=== PATIENT | female | born 1955 | race African-American/Black ===

== ENCOUNTER → 2019-11-13 16:41 | Outpatient (CLI) | payer OTHER, SELFPAY ==
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
== END ==
PROVIDERS: PCP Family Medicine; Visit Provider Family Medicine
DX: M79.10 Myalgia, unspecified site (principal); M47.892 Other spondylosis, cervical region
CPT/HCPCS: 72050; 73030; 73590

== ENCOUNTER 2019-12-23 13:50 | Outpatient (RCR) | payer OTHER, SELFPAY ==
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
--- NOTE | 2020-01-21 14:26 | PCPTNOTE ---
PHYSICAL THERAPY DISCHARGE 01-21-2020 Attending Provider: Karyn Christensen MD Patient:Germaine Bingham Date of :1955 Mrs. Bingham has not returned for any further treatments since the PT evaluation on 12/23/2019, therefore she will be discharged from therapy at this time. The goals were not assessed. Thank you for referring Germaine to [facility]. Please review, sign, date and return this discharge summary ARIK. I have been updated about the patient's current status and I agree with discharge from the above service at this time. Referring Physician Date
== END 2020-01-22 14:46 | disposition home or self-care (01) ==
LOC: ANHPT 13:50
PROVIDERS: PCP Family Medicine; Visit Provider Family Medicine
DX: M79.10 Myalgia, unspecified site (principal)
CPT/HCPCS: 97161

== ENCOUNTER 2024-02-21 17:17 | Outpatient (CLI) | payer MEDICARE, BC, SELFPAY ==
--- NOTE | ~2024-02-21 | XR_ITS ---
EXAMINATION: XR chest 2V DATE: 02/21/2024 17:41 INDICATION: Encounter for other preprocedure examination. TECHNIQUE: Frontal and lateral views of the chest were obtained. COMPARISON: Chest 2 views 06/07/2018, CT abdomen and pelvis 09/30/2019 FINDINGS: There is chronic blunting of right lateral costophrenic angle, consistent with scarring. Th ere are are surgical clips in right lower lung zone. Calcified right lung nodules and calcified right hilar and mediastinal lymph nodes are consistent with old granulomatous disease. No pleural effusion or pneumothorax. The heart size is normal. IMPRESSION: 1. Chronic scarring in right lateral costophrenic angle. Reviewed, dictated and finalized at location E.
== END 2024-02-21 17:18 | disposition home or self-care (01) ==
LOC: ANHIMG 17:27
PROVIDERS: PCP Physician Assistant; Visit Provider Physician Assistant
DX: Z01.818 Encounter for other preprocedural examination (principal); Z12.31 Encounter for screening mammogram for malignant neoplasm of breast; M81.0 Age-related osteoporosis without current pathological fracture; Z87.891 Personal history of nicotine dependence; R19.00 Intra-abdominal and pelvic swelling, mass and lump, unspecified site; R91.8 Other nonspecific abnormal finding of lung field
CPT/HCPCS: 71046

== ENCOUNTER 2024-03-07 14:55 | Outpatient (CLI) | payer MEDICARE, BC, SELFPAY ==
--- NOTE | 2024-03-07 | ECG_ITS ---
SEE SCANNED COPY FOR CONFIRMED REPORT MTDD
--- NOTE | ~2024-03-07 | US_ITS ---
EXAMINATION: US pelvic complete DATE: 03/07/2024 16:31 INDICATION: Pelvic mass TECHNIQUE: Multiple transabdominal sonographic images of the pelvis were obtained. COMPARISON: None. FINDINGS: The uterus measures 5.4 x 2.8 x 4.3 cm. The endometrial complex measures 3 mm in thickness. The righ t ovary measures cm. The ovaries are not visualized. There is no free fluid in the pelvis. IMPRESSION: 1. Normal pelvic ultrasound. Reviewed, dictated and finalized at location A.
--- NOTE | ~2024-03-07 | CT_ITS ---
EXAMINATION: CT lung screening DATE: 03/07/2024 15:37 INDICATION: NICOTINE DEPENDENCE TECHNIQUE: Computed tomography (CT) of the chest was performed without intravenous contrast. Addition al 3D reconstructions utilizing coronal maximum intensity projection (MIP) were performed. Automated exposure control and iterative reconstruction technique were employed. The dose-length product was 56 .46 mGy-cm. COMPARISON: None FINDINGS: There are few scattered bilateral calcified pulmonary nodules the largest at the left apex which donovan g with calcified right hilar and mediastinal lymph nodes all consistent with old granulomatous diseas e. There is a suture line in some pleural parenchymal scarring at the posterolateral right lower lung zone. There is additional mild discoid atelectasis at the posterior basilar left lower lobe. Small p neumatocele in the right lower lobe. No other noncalcified pulmonary nodules, pneumonia, pulmonary ed leida or pleural effusion. Heart size is normal. Surgical clip along the right heart border. No pericar dial effusion. Thoracic aorta is normal in caliber. No pathologically enlarged thoracic lymphadenopat hy. 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 Chronic mild anterior wed ging at T7 and T8. Right seventh rib thoracotomy defect. IMPRESSION: 1. . Lung-RADS category 1: Negative. Continue annual screening with noncontrast low-dose chest CT in 12 months. Reviewed, dictated and finalized at location A.
== END 2024-03-07 14:56 | disposition home or self-care (01) ==
PROVIDERS: PCP Physician Assistant; Visit Provider Physician Assistant
DX: Z01.818 Encounter for other preprocedural examination (principal); M81.0 Age-related osteoporosis without current pathological fracture; R19.00 Intra-abdominal and pelvic swelling, mass and lump, unspecified site; Z87.891 Personal history of nicotine dependence; Z12.31 Encounter for screening mammogram for malignant neoplasm of breast; Z12.2 Encounter for screening for malignant neoplasm of respiratory organs
CPT/HCPCS: 71271; 76856; 93005

== ENCOUNTER 2025-02-25 11:30 | Outpatient (CLI) | payer MEDICARE, BC, SELFPAY ==
--- NOTE | ~2025-02-25 | XR_ITS ---
AP and lateral views of the right femur Clinical History: Other specified disorder of bone Findings: No acute fracture or dislocation is seen. Osseous alignment is anatomic. Visualized joint s paces are grossly preserved. Soft tissues are unremarkable. Impression: Unremarkable right femoral radiographs. Reviewed, dictated and finalized at location . Impression: Unremarkable right femoral radiographs.
--- OUTSIDE RECORDS SUMMARY | 2025-02-25 13:03 | XMS_ITS | Clinical Summary ---
Author Organization [facility] Address [address] [place] [address] Care Team Providers Care Ingredient Mixer Name Role Phone Karyn Christensen MD Primary Care Provider [phone] Source Comments [facility],non-owned Affiliates and Associated Physician Practices is amultiple site organization consisting of ambulatory clinics and hospital sitesin [place], [place], [place] and [place]. This disclosure is being madepursuant to the Care Everywhere program and may not contain all information available regarding this patient. Last updated 18.[facility] Allergies No known active allergies Medications * Be aware that medications may not be up to date on this document. Alwaysverify current medications with the patient. multivitamin daily tablet Take 1 (one) tablet by mouth daily with food Active VITAMIN D PO Take by mouth once daily Active Cyanocobalamin ([facility] VITAMIN B-12 PO) Take by mouth once daily Active VITAMIN E PO Take by mouth once daily Active [place]-3 Fatty Acids (FISH OIL PO) Take by mouth once daily Active Active Problems Problem Noted Date Diagnosed Date Chronic obstructive lung disease 04/19/2021 Osteoporosis 04/19/2021 Tobacco dependence syndrome 04/19/2021 Bipolar I disorder 04/17/2018 Chronic post-traumatic stress disorder 8 Recurrent major depressive episodes, moderate Generalized anxiety disorder 02/08/2018 Chronic hepatitis C 01/15/2017 Overview (05/07/2021): Hepatitis B core antibody non reactive no ummunity to hepatitis B genotype 1a or 1b 05/03/21 FIbroscan CAP 209, LSM 10.3 kPa Depressive disorder 12/03/2016 Family history of breast cancer 12/03/2016 Family history of malignant neoplasm of ovary Skin lesion 12/03/2016 Family History Medical History Relation Name Comments Diabetes - Type 2 Mother Cancer - Breast Sister 1 Cancer - Uterine Sister 2 Cancer - Colon Sister 3 Relation Name Status Comments Mother Sister 1 Sister 2 Sister 3 Social History Tobacco Use Types Packs/Day Years Used Date Smoking Tobacco: Former Cigarettes Q uit: 04/19/2019 Smokeless Tobacco: Never Alcohol Use Standard Drinks/Week Comments Not Currently 0 (1 standard drink = 0.6 oz pur e alcohol) Comments Unknown Sex and Gender Information Value Date Recorded Sex Assigned at Not on file Legal Sex Female 12:02 PM PATIENT RELATIONS DIRECTOR Gender Identity Not on file Sexual Orientation Not on file Last Filed Vital Signs Vital Sign Reading Time Taken Comments Blood Pressure 121/63 09/14/2023 2:41 PM PATIENT RELATIONS DIRECTOR Pulse 81 09/14/2023 2:41 PM PATIENT RELATIONS DIRECTOR Temperature 36.1 C (96.9 F) 09/14/2023 2:41 PM PATIENT RELATIONS DIRECTOR Respiratory Rate 16 10/06/2022 9:23 AM PATIENT RELATIONS DIRECTOR Oxygen Saturation 100% 09/14/2023 2:41 PM PATIENT RELATIONS DIRECTOR Inhaled Oxygen Concentration - - Weight 51.3 kg (113 lb) 09/14/2023 2:41 PM PATIENT RELATIONS DIRECTOR Height 160 cm (5' 3 ) 09/14/2023 2:41 PM PATIENT RELATIONS DIRECTOR Body Mass Index 20.02 09/14/2023 2:41 PM PATIENT RELATIONS DIRECTOR Plan of Treatment Health Maintenance Due Date Last Done Comments BONE DENSITY TESTING 1955 COLOGUARD (AGES 45-75) - COLON CA SCREENING 1955 COLON MONITORING 1955 COLONOSCOPY - COLON CA SCREENING 1956 CT COLONOGRAPHY - COLON CA SCREENING 1955 Colorectal Cancer Screening 1955 FIT - COLON CA SCREENING 1955 FLEX SIG - COLON CA SCREENING 1955 LIPID TESTING 1955 MAMMOGRAM 1955 DTAP/TDAP/TD VACCINES (1 - Tdap) 01/11/1975 PNEUMOCOCCAL VACCINE 50+ (1 of 2 - PCV) 01/11/1975 ZOSTER VACCINE (1 of 2) 01/11/2006 HEPATITIS B VACCINE (1 of 3 - Risk 3-dose series) 2016 Respiratory Syncytial Virus (RSV) Vaccine Pt: or over 60 yrs (1 - Risk 60-74 years 1-dose series) 2016 COVID-19 VACCINE ( season) 2024 MEDICARE AWV CALENDAR YEAR 2024 INFLUENZA VACCINE (Season Ended) 2025 HEPATITIS C SCREENING Completed 09/14/2023 , 09/14/2023, 10/06/2022, Additional history exists HIB VACCINE Aged Out No longer eligi ble based on patient's age to complete this topic HPV VACCINE Aged Out No longer eligi ble based on patient's age to complete this topic MENINGOCOCCAL (Group B) VACCINE SHARED DECISION-MAKING Aged Out No longer eligible based on patient's age to complete this topic MENINGOCOCCAL GROUPS A/C/Y/W VACCINE Aged Out No longer eligible based on patient's age to complete this topic Goals Goal Patient Goal Type Associated Problems Recent Progress Patient-Stated? Author Medication Management General On track( 023 2:43 PM PATIENT RELATIONS DIRECTOR) Serene Manley, RACHELL Note: Expected end date: ONGOING Interventions: Take all medications as prescribed Procedures Procedure Name Priority Date/Time Associated Diagnosis Comments HEPATITIS C RNA QUANTITATIVE Routine 04/07/2022 9:57 AM CDT Chronic hepatitis C without hepatic coma from Last 3 Months or Most Recently Relevant to Health Maintenance Results * HEPATITIS C RNA QUANTITATIVE (04/07/2022 9:57 AM CDT) Hepatitis C RNA PCR, Interp Not detected Not detected 04/11/2022 1:04 PM CDT [facility] Blood BLOOD SPECIMEN / Unknown Lab Venipuncture / Unknown 04/07/2022 9:57 AM CDT 04/07/2022 10:14 AM CDT Narrative [facility] - 04/11/2022 1:04 PM CDT The Hepatitis C viral (HCV) RNA analysis utilized a serum sample, real-time reverse school clerk PCR, and is reported as Not Detected, Detected (<12 IU/mL), Quantity (IU/mL) or >30,000,000 IU/mL. The limit of quantitation of the assay is 12 IU/mL (100% of samples with this HCV RNA level were detected). The linear range is from 12 IU/mL to 30,000,000 IU/mL. Values less than 12 IU/mL are reported as Detected (<12 IU/mL). Values greater than 30,000,000 IU/mL are reported as >30,000,000 IU/mL. The detection/quantitation of HCV RNA in serum is based on the isolation of HCV RNA with reverse school clerk of genomic HCV RNA followed by real-time PCR in the presence of an unrelated RNA internal control. The internal control ensures that RNA is isolated, and that no general significant inhibitors of the RT-PCR process are present. The analysis was performed using a U.S. FDA approved test methodology ([employer] Real Time HCV). Ruth Leger CENTRAL SERVICE SUPPLY DISTRIBUTOR-PETROLEUM ANALYST LAB - CHEMISTRY NAKIA LEWIS Final Result [facility] [address] [place] [address], [facility] [phone] from Last 3 Months or Most Recently Relevant to Health Maintenance Insurance MEDICAID - OUT OF STATE MEDICARE [facility] Care Teams Ingredient Mixer Relationship Specialty Start Date End Date Karyn Christensen MD [address] [place] [id number] PCP - General 04/14/21
--- OUTSIDE RECORDS SUMMARY | 2025-02-25 13:03 | XMS_ITS | CONTINUITY OF CARE DOCUMENT ---
Author Name cintia, ibrahimaser Address Unknown Organization [facility] Address [address] [place] [address] Phone [phone] Care Team Providers Care Reed Or Wind Instrument Repairer Name Role Phone Kai Haynes MD Unavailable [phone] REID LOPEZ PA-C Unavailable REID LOPEZ PA-C Unavailable PROBLEMS Condition Status Date Provider Notes Tricuspid regurgitation, mild active Kai Haynes MD Screening active Kai Haynes MD neg lpa Anemia, iron deficiency active Kai bowling MD Family hx of myocardial infarction (AR), acute active Kai Haynes MD mom mi, siblbildin got aicd Tobacco use, quit active Kai Haynes MD Abnormal EKG active Kai Haynes MD ENCOUNTERS Date Type Provider Location Encounter Diag nosis - In-person encounter Office Visit Kai Haynes MD [place] [facility] - In-person encounter Office Visit Kai Haynes MD [facility] Office Anemia, iron deficiencyFamily hx of myocardial infarction (AR), acuteTobacco use, quitAbnormal EKG VITAL SIGNS Date Observation Value Provider Body Mass Index (Ratio) 19.74 kg/m2 Angélica Haynes MD blood pressure, cuff size regular Heath Leung blood pressure, diastolic 64 mm[Hg] Ta sunita Leung blood pressure, systolic 114 mm[Hg] Tab devorah Leung oxygen saturation, oximetry 98 % Lesvia Leung pulse rate 84 /min Lesvia Leung weight E&M 115 [lb_av] Lesvia Leung respiratory rate E&M 12 /min Lesvia Leung height E&M 64 [in_i] Lesvia Leung Body Mass Index (Ratio) 20.15 kg/m2 Angélica Haynes MD blood pressure, diastolic 64 mm[Hg] Coral nkLogdonna blood pressure, systolic 118 mm[Hg] Reyna kLog blood pressure, cuff size regular Heath dorsey Leung blood pressure, diastolic 64 mm[Hg] Heath dorsey Leung blood pressure, systolic 118 mm[Hg] Ashwin fairchild [place] oxygen saturation, oximetry 97 % Lesvia Leung pulse rate 84 /min Lesvia Leung weight E&M 117.4 [lb_av] Lesvia [place] height E&M 64 [in_i] Lesvia Leung respiratory rate E&M 12 /min Lesvia Leung HISTORY OF MEDICATION USE Medication Status Instructions Dates Provider Indications Com ments aspirin tablet 81 mg completed Take one tab PO daily - 2 Lillie Ventimiglia [facility] ferrous sulfate 325 mg (65 mg iron) tablet active Take one tab PO every other day Lesvia Leung SOCIAL HISTORY Date Observation Value Provider personal history of marijuana use yes Lillie Ventimiglia [facility] drug use no Lillie Ventimig isela [facility] alcohol use no Lillie Ventimig isela [facility] smoking, year quit 2018 Lilliehiram May ntimiglia [facility] cigarette use yes Lillie Ventimi glia [facility] smoking status Former smoker Lilliehiram [place] miglia [facility] personal history of marijuana use yes Lillie Ventimiglia [facility] drug use no Lillie Ventimig isela [facility] alcohol use no Lillie Gradyg isela [facility] smoking, year quit 2018 Lillie mcfadden [facility] cigarette use yes Lillie diez [facility] smoking status Former smoker Lillie malhotra [facility] INS[employer]ANCE PROVID[employer] Payer name Policy type / Coverage type [place] red republican ID [facility]TE [facility]ARE [id number] (PPO C-SNP) [employer] insurance ITeam [id number] [facility] [id number] ADVANCE DIRECTIVES Name Date DISCUSSED - NO DECISION MADE TREATMENT PLAN Date Name Performer Cardiology:on replacement therap y Lillie Danielle [facility] Cardiology:mild on echo Lillie leonard [facility] Cardiology:no chest pain or sob s he had echo that showed EF of 55% no wall motion abnormality g iven abnormal EKG in PCP office and family history will do a treadmill stress test Lillie Danielle [facility] :ef v55 Kai Haynes MD :neg uacr and chol, crp and prob nonprofit financial controller Kai Haynes MD Cardiology:continued cessation e ncouraged. Lillie Danielle [facility] Cardiology:with satu ration of 5% on last labs o n iron replacement per her primary management Lillie Danielle [facility] Cardiology:Noted to have negative precordial T-waves and PVC on EKG T his may be d/t her significant iron deficiency H ave recommended 2D echo to look for any LV dysfunction or WMA Lillie Danielle [facility] Date Name Stress Routine PROBNP, N TERMINAL Complete Echo CRP, high sensitivit y Lipoprotein (a) LIPID PANEL Microalb/Creatinine Urine, Random CT, Coronary Calcium Score HISTORY OF PROCEDURES Procedure Date Procedure Name Provider Procedure Notes S tatus EKG Kai Haynes MD complete d
== END 2025-02-25 11:31 | disposition home or self-care (01) ==
PROVIDERS: PCP Physician Assistant; Visit Provider Physician Assistant
DX: M89.8X5 Other specified disorders of bone, thigh (principal); R10.31 Right lower quadrant pain
CPT/HCPCS: 73552

== ENCOUNTER 2025-03-19 16:11 | Outpatient (CLI) | payer MEDICARE, BC, SELFPAY ==
--- NOTE | ~2025-03-19 | CT_ITS ---
CT Scan of the Chest without Contrast: Clinical Indication: Lung cancer screening, nicotine dependence Technique: Contiguous sections were acquired throughout the chest without intravenous contrast. Dose reduction technique was used on this scan by utilizing automated exposure control and iterative recon struction technique. The dose-length product (DLP) was 54.28 mGy-cm. COMPARISON: 03/07/2024 Findings: There is no evidence of any significant mediastinal, hilar or axillary lymphadenopathy. Large calcifi ed subcarinal lymph node present with additional calcified right hilar lymph nodes. There is no evidence of pleural or pericardial effusion. Calcified granulomas are present. There is bibasilar scarring or atelectasis. Images through the upper abdomen reveal no abnormalities. Impression: Lung RADS 2: Benign appearance. 12 month follow-up screening CT advised. Reviewed, dictated and finalized at location . Impression: Lung RADS 2: Benign appearance. 12 month follow-up screening CT advised.
--- OUTSIDE RECORDS SUMMARY | 2025-03-19 16:17 | XMS_ITS | Clinical Summary ---
Author Organization [facility] Address [address] [place] [address] Care Team Providers Care Mobile Patrol Officer Name Role Phone Karyn Christensen MD Primary Care Provider [phone] Source Comments [facility],non-owned Affiliates and Associated Physician Practices is amultiple site organization consisting of ambulatory clinics and hospital sitesin [place], [place], [place] and [place]. This disclosure is being madepursuant to the Care Everywhere program and may not contain all information available regarding this patient. Last updated 18.[facility] Allergies No known active allergies Medications * [...] PO Take by mouth once daily Active [place]-3 Fatty Acids (FISH OIL PO) Take by [...] on file Legal Sex Female 12:02 PM PROFESSIONAL WRESTLER Gender Identity Not on file Sexual Orientation Not on file Last Filed Vital Signs Vital Sign Reading Time Taken Comments Blood Pressure 121/63 09/14/2023 2:41 PM PROFESSIONAL WRESTLER Pulse 81 09/14/2023 2:41 PM PROFESSIONAL WRESTLER Temperature 36.1 C (96.9 F) 09/14/2023 2:41 PM PROFESSIONAL WRESTLER Respiratory Rate 16 10/06/2022 9:23 AM PROFESSIONAL WRESTLER Oxygen Saturation 100% 09/14/2023 2:41 PM PROFESSIONAL WRESTLER Inhaled Oxygen Concentration - - Weight 51.3 kg (113 lb) 09/14/2023 2:41 PM PROFESSIONAL WRESTLER Height 160 cm (5' 3 ) 09/14/2023 2:41 PM PROFESSIONAL WRESTLER Body Mass Index 20.02 09/14/2023 2:41 PM PROFESSIONAL WRESTLER Plan of Treatment Health Maintenance Due Date [...] Management General On track( 023 2:43 PM PROFESSIONAL WRESTLER) Serene Manley, RACHELL Note: Expected end date: [...] detected Not detected 04/11/2022 1:04 PM CDT [facility] Blood BLOOD SPECIMEN / Unknown Lab Venipuncture / Unknown 04/07/2022 9:57 AM CDT 04/07/2022 10:14 AM CDT Narrative [facility] - 04/11/2022 1:04 PM CDT The Hepatitis C viral (HCV) RNA analysis utilized a serum sample, real-time reverse trade promotion analyst PCR, and is reported as Not Detected, [...] the isolation of HCV RNA with reverse trade promotion analyst of genomic HCV RNA followed by real-time PCR in the presence of an unrelated RNA internal control. The internal control ensures that RNA is isolated, and that no general significant inhibitors of the RT-PCR process are present. The analysis was performed using a U.S. FDA approved test methodology ([employer] Real Time HCV). Ruth Leger ALUMINUM SIDING APPLICATOR-CARE PROVIDER LAB - CHEMISTRY NAKIA LEWIS Final Result [facility] [address] [place] [address], [facility] [phone] from Last 3 Months or Most Recently Relevant to Health Maintenance Insurance MEDICAID - OUT OF STATE MEDICARE [facility] Care Teams Mobile Patrol Officer Relationship Specialty Start Date End Date Karyn Christensen MD [address] [place] [phone] PCP - General 04/14/21
--- OUTSIDE RECORDS SUMMARY | 2025-03-19 16:17 | XMS_ITS | CONTINUITY OF CARE DOCUMENT ---
Author Name cintia, cintia Address Unknown Organization [facility] Address [address] [place] [address] Phone [phone] Care Team Providers Care Rug Cleaning Supervisor Name Role Phone Kai Haynes MD Unavailable REID LOPEZ PA-C Unavailable REID LOPEZ PA-C Unavailable PROBLEMS Condition Status Date Provider Notes Tricuspid regurgitation, mild active Kai Haynes MD Screening active Kai Haynes MD neg lpa Anemia, iron deficiency active Kai bowling MD Family hx of myocardial infarction ([place]), acute active Kai Haynes MD mom mi, siblbildin got aicd Tobacco use, quit active Kai Haynes MD Abnormal EKG active Kai Haynes MD ENCOUNTERS Date Type Provider Location Encounter Diag nosis - In-person encounter Office Visit Kai Haynes MD [place] [facility] - In-person encounter Office Visit Kai Haynes MD [facility] Office Anemia, iron deficiencyFamily hx of myocardial infarction ([place]), acuteTobacco use, quitAbnormal EKG VITAL SIGNS Date [...] blood pressure, systolic 118 mm[Hg] Ashwin fairchild Morral oxygen saturation, oximetry 97 % Lesvia Leung pulse rate 84 /min Lesvia Leung weight E&M 117.4 [lb_av] Lesvia Morral height E&M 64 [in_i] Lesvia Leung respiratory rate E&M 12 /min Lesvia Leung HISTORY OF MEDICATION USE Medication Status Instructions Dates Provider Indications Com ments aspirin tablet 81 mg completed Take one tab PO daily - 2 Lilile Ventimiglia [facility] ferrous sulfate 325 mg (65 mg iron) tablet active Take one tab PO every other day Lesvia Leung SOCIAL HISTORY Date Observation Value Provider personal history of marijuana use yes Lillie Ventimiglia [facility] drug use no Lillie Ventimig isela [facility] alcohol use no Lillie Ventimig isela [facility] smoking, year quit 2018 Lilliehiram May ntimiglia [facility] cigarette use yes Lillie Ventimi glia [facility] smoking status Former smoker Lilliehiram Wells miglia [facility] personal history of marijuana use yes Lillie Ventimiglia [facility] drug use no Lillie Ventimig isela [facility] alcohol use no Lillie Gradyg isela [facility] smoking, year quit 2018 Lillie mcfadden [facility] cigarette use yes Lillie diez [facility] smoking status Former smoker Lillie malhotra [facility] INSURANCE PROVIDERS Payer name Policy type / Coverage type [place] red democrat ID [facility] COMPLETE CARE [id number] (PPO C-SNP) [employer] insurance [employer] [id number] [facility] [id number] ADVANCE DIRECTIVES Name Date DISCUSSED - NO DECISION MADE TREATMENT PLAN Date Name Performer Cardiology:on replacement therap y Lillie Danielle [facility] Cardiology:mild on echo Lillie leonard [facility] Cardiology:no chest pain or sob s he had echo that showed EF of 55% no wall motion abnormality g iven abnormal EKG in PCP office and family history will do a treadmill stress test Lillie Danielle [facility] :ef v55 Kai Haynes MD :neg uacr and chol, crp and prob special education assistant Kai Haynes MD Cardiology:continued cessation e ncouraged. Lillie Danielle [facility] Cardiology:with satu ration of 5% on last labs o n iron replacement per her primary management Lillie Danielle [facility] Cardiology:Noted to have negative precordial T-waves and PVC on EKG T his may be d/t her significant iron deficiency H ave recommended 2D echo to look for any LV dysfunction or WMA Lillie Danielle [facility] Date Name Stress Routine PROBNP, N TERMINAL Complete Echo CRP, high sensitivit y Lipoprotein (a) LIPID PANEL Microalb/Creatinine Urine, Random CT, Coronary Calcium Score HISTORY OF PROCEDURES Procedure Date Procedure Name Provider Procedure Notes S tatus EKG Kai Haynes MD complete d
== END 2025-03-19 16:12 | disposition home or self-care (01) ==
PROVIDERS: PCP Physician Assistant; Visit Provider Physician Assistant
DX: Z12.2 Encounter for screening for malignant neoplasm of respiratory organs (principal); Z87.891 Personal history of nicotine dependence; Z13.820 Encounter for screening for osteoporosis; Z12.31 Encounter for screening mammogram for malignant neoplasm of breast
CPT/HCPCS: 71271

== ENCOUNTER 2025-03-19 16:35 | Emergency (ER) | payer MEDICARE, BC, SELFPAY ==
--- NOTE | ~2025-03-19 | CT_ITS ---
CLINICAL INDICATION: Left-sided abdominal pain with constipation COMPARISON: 09/30/2019. TECHNIQUE: Multiple contiguous axial images of the abdomen and pelvis were performed following the ad ministration of with 100 mL Omnipaque-350 intravenous contrast The dose-length product (DLP) was 170.05 mGy-cm. Automated exposure control and iterative reconstruction technique were employed. FINDINGS/OBSERVATIONS: Visualized lower thorax: Findings consistent with prior granulomatous disease within the bilateral lung bases. The remainder of the bilateral lung bases are clear. The heart is of normal size, without pericardial effusion. Liver: The liver demonstrates homogeneous enhancement and is not enlarged. Gallbladder and biliary system: The gallbladder is minimally distended, containing a single lamellated stone and is otherwise unremar kable. Pancreas: The pancreas enhances homogeneously without ductal dilatation. Spleen: The spleen enhances homogeneously and is not enlarged. Kidneys: The bilateral kidneys enhance symmetrically without hydronephrosis or renal calculi. Rapid excretion is noted. Adrenal glands: Unremarkable. Gastrointestinal tract: Mural thickening within the stomach suggesting gastritis. Aerated stool is identified throughout the colon. Appendix: The air-filled appendix is of normal caliber (axial series, images 99 through 105). Vasculature: Unremarkable. Lymph nodes: No pathologically enlarged or morphologically suspicious lymph nodes within the retroperitoneum or at the root of the mesentery. Pelvic structures: The bladder is decompressed, and otherwise unremarkable. The uterus is retroverted and retroflexed. Body wall and musculoskeletal: Age-appropriate degenerative disease within the lower thoracic and lumbosacral spines. IMPRESSION: Findings suggesting gastritis, for which clinical correlation is needed. Cholelithiasis without evidence of cholecystitis. Reviewed, dictated and finalized at location A.
--- OUTSIDE RECORDS SUMMARY | 2025-03-19 16:37 | XMS_ITS | CONTINUITY OF CARE DOCUMENT ---
Author Name cintia, cintia Address Unknown Organization [facility] Address [address] [place] [address] Phone [phone] Care Team Providers Care Web Knitter Name Role Phone Kai Haynes MD Unavailable REID LOPEZ PA-C Unavailable [phone] REID LOPEZ PA-C Unavailable PROBLEMS Condition Status Date Provider Notes Tricuspid regurgitation, mild active Kai Haynes MD Screening active Kai Haynes MD neg lpa Anemia, iron deficiency active Kai bowling MD Family hx of myocardial infarction ([place]), acute active Kai Haynes MD mom mi, siblbildin got aicd Tobacco use, quit active Kai Haynes MD Abnormal EKG active Kai Haynes MD ENCOUNTERS Date Type Provider Location Encounter Diag nosis - In-person encounter Office Visit Kai Haynes MD [place] [facility] - In-person encounter Office Visit Kai Haynes MD [facility] Anemia, iron deficiencyFamily hx of myocardial infarction ([place]), acuteTobacco use, quitAbnormal EKG VITAL SIGNS Date [...] blood pressure, systolic 118 mm[Hg] Ashwin fairchild Potter oxygen saturation, oximetry 97 % Lesvia Leung pulse rate 84 /min Lesvia Leung weight E&M 117.4 [lb_av] Lesvia Potter height E&M 64 [in_i] Lesvia Leung respiratory rate E&M 12 /min Lesvia Leung HISTORY OF MEDICATION USE Medication Status Instructions Dates Provider Indications Com ments aspirin tablet 81 mg completed Take one tab PO daily - 2 Lillie Ventimiglia [facility] ferrous sulfate 325 mg (65 mg iron) tablet active Take one tab PO every other day Lesvia Leung SOCIAL HISTORY Date Observation Value Provider personal history of marijuana use yes Lillie Ventimiglia [facility] drug use no Lillie Ventimig isela [facility] alcohol use no Lillie Ventimig isela [facility] smoking, year quit 2018 Lilliehiram May ntimiglia [facility] cigarette use yes Lillie Ventimi glia [facility] smoking status Former smoker Lilliehiram Wells miglia [facility] personal history of marijuana use yes Lillie Ventimiglia [facility] drug use no Lillie Ventimig isela [facility] alcohol use no Lillie Gradyg isela [facility] smoking, year quit 2018 Lillie mcfadden [facility] cigarette use yes Lillie diez [facility] smoking status Former smoker Lillie malhotra [facility] INSURANCE PROVIDERS Payer name Policy type / Coverage type [place] red libertarian ID [facility] COMPLETE CARE ST-001A (PPO C-SNP) [employer] insurance myaNUMBER [id number] [facility] [id number] ADVANCE DIRECTIVES Name Date DISCUSSED - NO DECISION MADE TREATMENT PLAN Date Name Performer Cardiology:on replacement therap y Lillie Danielle [facility] Cardiology:mild on echo Lillie leonard [facility] Cardiology:no chest pain or sob s he had echo that showed EF of 55% no wall motion abnormality g iven abnormal EKG in PCP office and family history will do a treadmill stress test Lillie Danielle [facility] :ef v55 Kai Haynes MD :neg uacr and chol, crp and prob golf course starter Kai Haynes MD Cardiology:continued cessation e ncouraged. Lillie Danielle [facility] Cardiology:with satu ration of 5% on last labs o n iron replacement per her primary management Lillie Danielle [facility] Cardiology:Noted to have negative precordial T-waves and PVC on EKG T his may be d/t her significant iron deficiency H ave recommended 2D echo to look for any LV dysfunction or WMA Lillie Danielle [facility] Date Name Stress Routine PROBNP, N TERMINAL Complete Echo CRP, high sensitivit y Lipoprotein (a) LIPID PANEL Microalb/Creatinine Urine, Random CT, Coronary Calcium Score HISTORY OF PROCEDURES Procedure Date Procedure Name Provider Procedure Notes S tatus EKG Kai Haynes MD complete d
--- OUTSIDE RECORDS SUMMARY | 2025-03-19 16:37 | XMS_ITS | Clinical Summary ---
Author Organization [facility] Address [address] [place] [address] Care Team Providers Care Real Estate Appraiser Name Role Phone Karyn Christensen MD Primary Care Provider [phone] Source Comments [facility],non-owned Affiliates and Associated Physician Practices is amultiple site organization consisting of ambulatory clinics and hospital sitesin [place], [place], [place] and [place]. This disclosure is being madepursuant to the Care Everywhere program and may not contain all information available regarding this patient. 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 Gender Identity Not on file Sexual Orientation Not on file Last Filed Vital Signs Vital Sign Reading Time Taken Comments Blood Pressure 121/63 09/14/2023 2:41 PM WOOL WASHING MACHINE OPERATOR Pulse 81 09/14/2023 2:41 PM WOOL WASHING MACHINE OPERATOR Temperature 36.1 C (96.9 F) 09/14/2023 2:41 PM WOOL WASHING MACHINE OPERATOR Respiratory Rate 16 10/06/2022 9:23 AM WOOL WASHING MACHINE OPERATOR Oxygen Saturation 100% 09/14/2023 2:41 PM WOOL WASHING MACHINE OPERATOR Inhaled Oxygen Concentration - - Weight 51.3 kg (113 lb) 09/14/2023 2:41 PM WOOL WASHING MACHINE OPERATOR Height 160 cm (5' 3 ) 09/14/2023 2:41 PM WOOL WASHING MACHINE OPERATOR Body Mass Index 20.02 09/14/2023 2:41 PM WOOL WASHING MACHINE OPERATOR Plan of Treatment Health Maintenance Due Date [...] Management General On track( 023 2:43 PM WOOL WASHING MACHINE OPERATOR) Serene Manley, RACHELL Note: Expected end date: [...] detected Not detected 04/11/2022 1:04 PM CDT [facility] Blood BLOOD SPECIMEN / Unknown Lab Venipuncture / Unknown 04/07/2022 9:57 AM CDT 04/07/2022 10:14 AM CDT Narrative [facility] - 04/11/2022 1:04 PM CDT The Hepatitis C viral (HCV) RNA analysis utilized a serum sample, real-time reverse fruit picker machine operator PCR, and is reported as Not Detected, [...] the isolation of HCV RNA with reverse fruit picker machine operator of genomic HCV RNA followed by real-time PCR in the presence of an unrelated RNA internal control. The internal control ensures that RNA is isolated, and that no general significant inhibitors of the RT-PCR process are present. The analysis was performed using a U.[place]. FDA approved test methodology ([employer] Real Time HCV). Ruth Leger WATER RECLAMATION SYSTEMS OPERATOR-STOKER ERECTOR LAB - CHEMISTRY NAKIA LEWIS Final Result [facility] [address] [place] [address], [facility] [phone] from Last 3 Months or Most Recently Relevant to Health Maintenance Insurance MEDICAID - OUT OF STATE MEDICARE [facility] Care Teams Real Estate Appraiser Relationship Specialty Start Date End Date Karyn Christensen MD [address] [place] [phone] PCP - General 04/14/21
[2025-03-19 16:53] VITALS: BP 118/72; PULSE 70; RESP 16; TEMP 36.4; O2SAT 100
--- NOTE | 2025-03-19 17:31 | ED.ABDPAIN ---
HPI - Abdominal Pain General Chief Complaint: Abdominal Pain <FREDERICK Barboza Last Filed: 03/19/25 17:38> Stated Complaint: Pain left side poss food poisoning <FREDERICK Barboza Last Filed: 03/19/25 17:38> Time Seen by Provider: 03/19/25 17:33 <FREDERICK Barboza Last Filed: 03/19/25 17:38> Focused HPI: Patient is a 70 y/o female who presents to the ED with c/o L sided abd pain. Patient reports she has had intermittent pain throughout her L sided lateral abdomen for the past 1 month. States this occurs with eating. She works at the [employer]. 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 She thinks she is being poisoning. Has mild pain currently. Reports nausea with the pain. reports recent constipation. Denies vomiting, diarrhea, fevers. Denies drug use. GENERAL: Well-appearing, thin, and in no acute distress. HEAD: Normocephalic, atraumatic. CHEST: Clear to auscultation. ?No respiratory distress. HEART: Regular rate and rhythm.? ABD: Mild TTP in L lateral upper abdomen. NEURO: ?Alert and oriented x3. Patient screened in triage and initial orders placed.? ?Additional care and disposition to be based upon?diagnostic testing and treatment. <Vijaya Gonzalez PA-C - Last Filed: 03/19/25 17:38> Focused HPI: Patient is a 70 y/o female who presents to the ED with c/o L sided abd pain. Patient reports she has had intermittent pain throughout her L sided lateral abdomen for the past 1 month. States this occurs with eating. She works at the [employer]. 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 She thinks she is being poisoned. Has mild pain currently. Reports nausea with the pain. Reports recent constipation. Denies vomiting, diarrhea, fevers. Denies drug use. GENERAL: Well-appearing, thin, and in no acute distress. HEAD: Normocephalic, atraumatic. CHEST: Clear to auscultation. ?No respiratory distress. HEART: Regular rate and rhythm.? ABD: Mild TTP in L lateral upper abdomen. NEURO: ?Alert and oriented x3. Patient screened in triage and initial orders placed.? ?Additional care and disposition to be based upon?diagnostic testing and treatment. <Rosa Isela Davalos PA-C - Last Filed: 03/19/25 21:03> Source: patient <Vijaya Gonzalez PA-C - Last Filed: 03/19/25 17:38> Mode of arrival: ambulatory <Vijaya Gonzalez PA-C - Last Filed: 03/19/25 17:38> Limitations: no limitations <Vijaya Gonzalez PA-C - Last Filed: 03/19/25 17:38> Related Data Allergies/Adverse Reactions: Allergies Allergy/AdvReac Type Severity Reaction Status Date / Time No Known Allergies Allergy Unverified 03/19/25 16:36 <Vijaya Gonzalez PA-C - Last Filed: 03/19/25 17:38> Review of Systems Review of Systems: All systems reviewed & are unremarkable except as noted in HPI and below <Rosa Isela Davalos PA-C - Last Filed: 03/19/25 21:03> PMFSH Past Medical History Medical History: Medical History (Updated 03/19/25 @ 20:59 by Rosa Isela Davalos PA-C) No history of diabetes mellitus Gallbladder disease <FREDERICK Barboza Last Filed: 03/19/25 17:38> Surgical History Surgical History: Surgical History (Updated 09/30/19 @ 02:00 by Vijaya Isidro) History of cholecystectomy <Vijaya Gonzalez PA-C - Last Filed: 03/19/25 17:38> Social History Social History: Social History (Updated 09/04/19 @ 16:45 by Micah Dyson) Smoking status: Former smoker Gender identity (if verbalized by the patient): Female <FREDERICK Barboza Last Filed: 03/19/25 17:38> Exam Narrative: GENERAL: Well-appearing, well-nourished, and in no acute distress. HEAD: Normocephalic, atraumatic. EYES: EOMI. CHEST: Clear to auscultation. No respiratory distress. No wheezes rales or rhonchi HEART: Regular rate and rhythm. No murmur heard. Normal peripheral pulses. ABDOMEN: Soft, nondistended, normal active bowel sounds. Tender to palpation in the left lower abdomen, without guarding EXTREMITIES: Normal range of motion. No edema. SKIN: Warm, dry, no rash. NEURO: No focal deficits. Alert and oriented x3. PSYCH: Normal mood and affect <FREDERICK Roy Last Filed: 03/19/25 21:03> Course Course Emergency Course: Patient updated on her workup and agrees with plan of care <FREDERICK Roy Last Filed: 03/19/25 21:03> Vital Signs Vital signs: Vital Signs Temperature 97.6 F 03/19/25 16:53 Pulse Rate 70 03/19/25 16:53 Respiratory Rate 16 03/19/25 16:53 Blood Pressure 118/72 03/19/25 16:53 Pulse Oximetry 100 03/19/25 16:53 Oxygen Delivery Room Air 03/19/25 16:53 Temperature 97.6 F 03/19/25 16:53 Pulse Rate 72 03/19/25 20:00 Respiratory Rate 18 03/19/25 20:00 Blood Pressure 133/91 H 03/19/25 20:00 Pulse Oximetry 100 03/19/25 20:00 Oxygen Delivery Room Air 03/19/25 16:53 <Vijaya Gonzalez PA-C - Last Filed: 03/19/25 17:38> Vital Signs Temperature 97.6 F 03/19/25 16:53 Pulse Rate 70 03/19/25 16:53 Respiratory Rate 16 03/19/25 16:53 Blood Pressure 118/72 03/19/25 16:53 Pulse Oximetry 100 03/19/25 16:53 Oxygen Delivery Room Air 03/19/25 16:53 Temperature 97.6 F 03/19/25 16:53 Pulse Rate 72 03/19/25 20:00 Respiratory Rate 18 03/19/25 20:00 Blood Pressure 133/91 H 03/19/25 20:00 Pulse Oximetry 100 03/19/25 20:00 Oxygen Delivery Room Air 03/19/25 16:53 <Rosa Isela Davalos PA-C - Last Filed: 03/19/25 21:03> MDM - Abdominal Pain MDM Narrative Medical decision making narrative: MSE by KELSEY in triage. <Vijaya Gonzalez PA-C - Last Filed: 03/19/25 17:38> MSE by KELSEY in triage. Patient presents the emergency department for left-sided lower abdominal pain. She is afebrile and nontoxic appearing. Her vitals are stable. Cbc without leukocytosis. Metabolic panel without concerning findings. Urine with 21-50 white blood cells, this will be sent for culture. Patient will be started on oral antibiotics. CT abdomen pelvis shows findings suggestive of gastritis. Patient updated on her workup and agrees with plan of care. She is to follow up with primary provider. She was given warnings to return to the ER <Rosa Isela Davalos PA-C - Last Filed: 03/19/25 21:03> Differential Diagnosis Differential diagnosis: Likely calculus of kidney, constipation, diverticulitis and other (UTI) <FREDERICK Roy Last Filed: 03/19/25 21:03> Lab Data Attestation: I reviewed the patient's lab results. <Rosa Isela Davalos PA-C - Last Filed: 03/19/25 21:03> Result diagrams: 03/19/25 17:57 03/19/25 17:57 <FREDERICK Barboza Last Filed: 03/19/25 17:38> Labs: Lab Results 03/19/25 Range/Units 17:57 WBC 8.9 (4.5-10.0) K/mm3 RBC 3.96 L (4.2-5.4) M/mm3 Hgb 10.9 L (12.0-15.0) g/dL Hct 33.2 L (37.0-47.0) % MCV 83.8 (80-100) fl MCH 27.5 (26-34) pg MCHC 32.8 (32-36) g/dl RDW 14.7 H (11.5-14.5) % Plt Count 253 (150-375) k/mm3 MPV 10.4 (7.4-10.4) fl Immature Gran % (Auto) 0.2 (0-0.5) % Neut % (Auto) 40.0 L (45.5-73.1) % Lymph % (Auto) 44.4 H (18.3-44.2) % [place] % (Auto) 12.3 H (2.6-8.5) % Eos % (Auto) 2.0 (0-4.4) % Baso % (Auto) 1.1 (0.2-1.2) % Lymph # (Auto) 3.93 H (0.9-3.2) K/mm3 [place] # (Auto) 1.1 H (0.1-0.6) K/mm3 Eos # (Auto) 0.2 (0-0.3) K/mm3 Baso # (Auto) 0.1 (0.0-0.1) K/mm3 Abs Immat Gran (auto) 0.02 (0.00-0.031) K/mm3 Absolute Neuts (auto) 3.5 (1.3-6.7) K/mm3 Absolute Nucleated RBC 0.000 (0.0-0.012) K/mm3 Nucleated RBC % 0.0 (0.0-0.2) % Sodium 142 (137-145) mmol/L Potassium 4.1 (3.4-5.0) mmol/L Chloride 107 (98-107) mmol/L Carbon Dioxide 27 (22-30) mmol/L Anion Gap 8 (4-12) mmol/L BUN 12 D (7-17) mg/dL Creatinine 0.88 (0.7-1.0) mg/dL Estim Creat Clear Calc 42 ml/min Estimated GFR > 60 (59 - ) Glucose 79 (65-110) mg/dL Calcium 9.0 (8.4-10.2) mg/dL Lipase 60 (23-300) U/L Urine Color Yellow (Yellow) Urine Appearance Clear (Clear) Urine pH 5.5 (5.0-9.0) Ur Specific [place] 1.014 (1.001-1.035) Urine Protein Negative (Negative) mg/dL Urine Glucose (UA) Negative (Negative) mg/dL Urine Ketones Negative (Negative) mg/dL Ur Blood (Man) Negative (Negative) Urine Nitrate Negative (Negative) Urine Bilirubin Negative (Negative) Urine Urobilinogen 1.0 (<2.0) mg/dL Leukocyte Esterase Rfl 3+ H (Negative) CHIOMA/UL Urine RBC 0-2 (0-2) /hpf Urine WBC 21-50 H (0-3) /hpf Ur Squamous Epith Cells None seen (Few) /hpf Urine Bacteria None seen /hpf Urine Casts 0-2 Urine Opiates Screen Negative (Negative) Urine Methadone Screen Negative (Negative) Ur Barbiturates Screen Negative (Negative) Ur Phencyclidine Scrn Negative (Negative) Ur Amphetamine Screen Negative (Negative) U Benzodiazepines Scrn Negative (Negative) Urine Cocaine Screen Negative (Negative) U Cannabinoids Screen Positive A (Negative) <Vijaya Gonzalez PA-C - Last Filed: 03/19/25 17:38> Lab Results 03/19/25 Range/Units 17:57 WBC 8.9 (4.5-10.0) K/mm3 RBC 3.96 L (4.2-5.4) M/mm3 Hgb 10.9 L (12.0-15.0) g/dL Hct 33.2 L (37.0-47.0) % MCV 83.8 (80-100) fl MCH 27.5 (26-34) pg MCHC 32.8 (32-36) g/dl RDW 14.7 H (11.5-14.5) % Plt Count 253 (150-375) k/mm3 MPV 10.4 (7.4-10.4) fl Immature Gran % (Auto) 0.2 (0-0.5) % Neut % (Auto) 40.0 L (45.5-73.1) % Lymph % (Auto) 44.4 H (18.3-44.2) % [place] % (Auto) 12.3 H (2.6-8.5) % Eos % (Auto) 2.0 (0-4.4) % Baso % (Auto) 1.1 (0.2-1.2) % Lymph # (Auto) 3.93 H (0.9-3.2) K/mm3 [place] # (Auto) 1.1 H (0.1-0.6) K/mm3 Eos # (Auto) 0.2 (0-0.3) K/mm3 Baso # (Auto) 0.1 (0.0-0.1) K/mm3 Abs Immat Gran (auto) 0.02 (0.00-0.031) K/mm3 Absolute Neuts (auto) 3.5 (1.3-6.7) K/mm3 Absolute Nucleated RBC 0.000 (0.0-0.012) K/mm3 Nucleated RBC % 0.0 (0.0-0.2) % Sodium 142 (137-145) mmol/L Potassium 4.1 (3.4-5.0) mmol/L Chloride 107 (98-107) mmol/L Carbon Dioxide 27 (22-30) mmol/L Anion Gap 8 (4-12) mmol/L BUN 12 D (7-17) mg/dL Creatinine 0.88 (0.7-1.0) mg/dL Estim Creat Clear Calc 42 ml/min Estimated GFR > 60 (59 - ) Glucose 79 (65-110) mg/dL Calcium 9.0 (8.4-10.2) mg/dL Lipase 60 (23-300) U/L Urine Color Yellow (Yellow) Urine Appearance Clear (Clear) Urine pH 5.5 (5.0-9.0) Ur Specific [place] 1.014 (1.001-1.035) Urine Protein Negative (Negative) mg/dL Urine Glucose (UA) Negative (Negative) mg/dL Urine Ketones Negative (Negative) mg/dL Ur Blood (Man) Negative (Negative) Urine Nitrate Negative (Negative) Urine Bilirubin Negative (Negative) Urine Urobilinogen 1.0 (<2.0) mg/dL Leukocyte Esterase Rfl 3+ H (Negative) CHIOMA/UL Urine RBC 0-2 (0-2) /hpf Urine WBC 21-50 H (0-3) /hpf Ur Squamous Epith Cells None seen (Few) /hpf Urine Bacteria None seen /hpf Urine Casts 0-2 Urine Opiates Screen Negative (Negative) Urine Methadone Screen Negative (Negative) Ur Barbiturates Screen Negative (Negative) Ur Phencyclidine Scrn Negative (Negative) Ur Amphetamine Screen Negative (Negative) U Benzodiazepines Scrn Negative (Negative) Urine Cocaine Screen Negative (Negative) U Cannabinoids Screen Positive A (Negative) <Rosa Isela Davalos PA-C - Last Filed: 03/19/25 21:03> Imaging Data Radiologist's impression: ITS Impressions Abdomen/Pelvis CT 03/19/25 20:42 IMPRESSION: Findings suggesting gastritis, for which clinical correlation is needed. Cholelithiasis without evidence of cholecystitis. <FREDERICK Barboza Last Filed: 03/19/25 17:38> ITS Impressions Abdomen/Pelvis CT 03/19/25 20:42 IMPRESSION: Findings suggesting gastritis, for which clinical correlation is needed. Cholelithiasis without evidence of cholecystitis. <FREDERICK Roy Last Filed: 03/19/25 21:03> Critical Care Time Critical Care Time Critical Care Time: No <FREDERICK Roy Last Filed: 03/19/25 21:03> Discharge Plan Discharge Clinical Impression: Acute UTI Gastritis Qualifiers: Gastritis type: unspecified gastritis Chronicity: acute Gastritis bleeding: without bleeding Qualified Code(s): K29.00 - Acute gastritis without bleeding <FREDERICK Barboza Last Filed: 03/19/25 17:38> Patient Disposition: Home <FREDERICK Barboza Last Filed: 03/19/25 17:38> Condition: Stable <FREDERICK Barboza Last Filed: 03/19/25 17:38> Instructions: Antibiotic Form, Gastritis (ED), Urinary Tract Infection in Women (ED), Diet for Stomach Ulcers and Gastritis (ED) <FREDERICK Barboza Last Filed: 03/19/25 17:38> Additional Instructions: Return to the ER if you experience fever, abdominal pain with nausea and vomiting, you are unable to keep down liquids or solids, blood in the stool, or any other symptoms that are concerning to you Remain well hydrated. Take oral antibiotics as prescribed Follow up with your primary care doctor <FREDERICK Barboza Last Filed: 03/19/25 17:38> Patient Language: Liberian <FREDERICK Barboza Last Filed: 03/19/25 17:38> Prescriptions: New cephalexin 500 mg capsule 500 mg PO Q12H 5 Days Qty: 10 0RF No Action ondansetron HCl [Zofran] 4 mg tablet 4 mg PO Q8H Qty: 14 0RF <Vijaya Gonzalez PA-C - Last Filed: 03/19/25 17:38> Follow-up/Referrals: Tasha,BLANQUITA Dumont [Primary Care Provider] - <Vijaya Gonzalez PA-C - Last Filed: 03/19/25 17:38>
[2025-03-19 18:06] LABS: Basophils Absolute Auto 0.1 K/mm3 (0.0-0.1); Basophils Percent Auto 1.1 % (0.2-1.2); Eosinophils Absolute Auto 0.2 K/mm3 (0-0.3); Hematocrit 33.2 % (37.0-47.0); Hemoglobin 10.9 g/dL (12.0-15.0); Immature Granulocyte Absolute 0.02 K/mm3 (0.00-0.031); Immature Granulocyte Percent A 0.2 % (0-0.5); Lymphocytes Absolute Auto 3.93 K/mm3 (0.9-3.2); Lymphocytes Percent Auto 44.4 % (18.3-44.2); Mean Corpuscular HGB Conc 32.8 g/dl (32-36); Mean Corpuscular Hemoglobin 27.5 pg (26-34); Mean Corpuscular Volume 83.8 fl (80-100); Mean Platelet Volume 10.4 fl (7.4-10.4); Monocytes Absolute Auto 1.1 K/mm3 (0.1-0.6); Monocytes Percent Auto 12.3 % (2.6-8.5); Neutrophils Absolute Auto 3.5 K/mm3 (1.3-6.7); Platelet Count Result 253 k/mm3 (150-375); Red Blood Count 3.96 M/mm3 (4.2-5.4); Red Cell Distribution Width 14.7 % (11.5-14.5); White Blood Count 8.9 K/mm3 (4.5-10.0)
[2025-03-19 18:14] LABS: Add Urine Microscopic? YES; Appearance Urine Clear (Clear); Bacteria Urine None Seen /hpf; Bilirubin Urine Negative (Negative); Blood Urine Negative (Negative); Color Urine Yellow (Yellow); Glucose Urine UA Negative (Negative); Ketones Urine Negative (Negative); Leukocyte Esterase Ur 3+ LEU/UL (Negative); Nitrate Urine Negative (Negative); Non Pathogenic Casts 0-2; Protein Urine Negative (Negative); RBC Urine 0-2 /hpf (0-2); Specific Grav Ur 1.014 (1.001-1.035); Squamous Epithelial Cell Urine None Seen /hpf (Few); WBC Urine 21-50 /hpf (0-3); pH Urine 5.5 (5.0-9.0)
[2025-03-19 18:19] LABS: Anion Gap 8 mmol/L (4-12); Blood Urea Nitrogen 12 mg/dL (7-17); Carbon Dioxide 27 mmol/L (22-30); Chloride 107 mmol/L (98-107); Estimated CRCL calculation 42 ml/min; Estimated Glomerular Filt Rate > 60; Glucose 79 mg/dL (65-110); Lipase 60 U/L (23-300); Potassium 4.1 mmol/L (3.4-5.0); Sodium 142 mmol/L (137-145)
[2025-03-19 18:24] LABS: Amphetamine Screen Urine Negative (Negative); Barbiturate Screen Urine Negative (Negative); Benzodiazepines Screen Urine Negative (Negative); Cannabinoid Screen Urine Positive (Negative); Cocaine Screen Urine Negative (Negative); Methadone Screen Urine Negative (Negative); Opiate Screen Urine Negative (Negative); Phencyclidine Screen Urine Negative (Negative)
--- OUTSIDE RECORDS SUMMARY | 2025-03-19 18:56 | XMS_ITS | CONTINUITY OF CARE DOCUMENT ---
Author Name cintia, cintia Address Unknown Organization [facility] Address [address] [place] [address] Phone [phone] Care Team Providers Care Admitting Coordinator Name Role Phone Kai Haynes MD Unavailable [...] In-person encounter Office Visit Kai Haynes MD [place] [facility] - In-person encounter Office Visit Kai Haynes MD [facility] Office Anemia, iron deficiencyFamily hx of [...] blood pressure, systolic 118 mm[Hg] Ashwin fairchild [place] oxygen saturation, oximetry 97 % Lesvia Leung pulse rate 84 /min Lesvia Leung weight E&M 117.4 [lb_av] Lesvia [place] height E&M 64 [in_i] Lesvia Leung respiratory rate E&M 12 /min Lesvia Leung HISTORY OF MEDICATION USE Medication Status Instructions Dates Provider Indications Com ments aspirin tablet 81 mg completed Take one tab PO daily - 2 Lillie Ventimiglia [facility] ferrous sulfate 325 mg (65 mg iron) tablet active Take one tab PO every other day Lesvia Leung SOCIAL HISTORY Date Observation Value Provider personal history of marijuana use yes Lillie Ventimiglia [facility] drug use no Lillie Ventimig isela [facility] alcohol use no Lillie Ventimig isela [facility] smoking, year quit 2018 Lilliehiram May ntimiglia [facility] cigarette use yes Lillie Ventimi glia [facility] smoking status Former smoker Lilliehiram Wells miglia [facility] personal history of marijuana use yes Lillie Ventimiglia [facility] drug use no Lillie Ventimig isela [facility] alcohol use no Lillie Gradyg isela [facility] smoking, year quit 2018 Lillie mcfadden [facility] cigarette use yes Lillie diez [facility] smoking status Former smoker Lillie malhotra [facility] INSURANCE PROVIDERS Payer name Policy type / Coverage type [place] red democrat ID [facility] COMPLETE CARE [id number] (PPO C-SNP) [employer] insurance [employer] [id number] [facility] [id number] ADVANCE DIRECTIVES Name Date DISCUSSED - NO DECISION MADE TREATMENT PLAN Date Name Performer Cardiology:on replacement therap y Lillie Danielle [facility] Cardiology:mild on echo Lillie leonard [facility] Cardiology:no chest pain or sob s he had echo that showed EF of 55% no wall motion abnormality g iven abnormal EKG in PCP office and family history will do a treadmill stress test Lillie Danielle [facility] :ef v55 Kai Haynes MD :neg uacr and chol, crp and prob orthotics technician Kai Haynes MD Cardiology:continued cessation e ncouraged. Lillie Danielle [facility] Cardiology:with satu ration of 5% on last labs o n iron replacement per her primary management Lillie Danielle [facility] Cardiology:Noted to have negative precordial T-waves and PVC on EKG T his may be d/t her significant iron deficiency H ave recommended 2D echo to look for any LV dysfunction or WMA Lillie Danielle [facility] Date Name Stress Routine PROBNP, N TERMINAL Complete Echo CRP, high sensitivit y Lipoprotein (a) LIPID PANEL Microalb/Creatinine Urine, Random CT, Coronary Calcium Score HISTORY OF PROCEDURES Procedure Date Procedure Name Provider Procedure Notes S tatus EKG Kai Haynes MD complete d
--- OUTSIDE RECORDS SUMMARY | 2025-03-19 18:57 | XMS_ITS | Clinical Summary ---
Author Organization [facility] Address [address] [place] [address] Care Team Providers Care Production Machinist Name Role Phone Karyn Christensen MD Primary Care Provider Source Comments [facility],non-owned Affiliates and Associated Physician Practices is amultiple site organization consisting of ambulatory clinics and hospital sitesin [place], [place], [place] and [place]. This disclosure is being madepursuant to the Care Everywhere program and may not contain all information available regarding this patient. Last updated 18.[facility] Allergies No known active allergies Medications * [...] PO Take by mouth once daily Active [place]-3 Fatty Acids (FISH OIL PO) Take by [...] on file Legal Sex Female 12:02 PM [employer]OR SHOP HELPER Gender Identity Not on file Sexual Orientation Not on file Last Filed Vital Signs Vital Sign Reading Time Taken Comments Blood Pressure 121/63 09/14/2023 2:41 PM [employer] SH[employer] HELPER Pulse 81 09/14/2023 2:41 PM [employer]OR SH[employer] HELPER Temperature 36.1 C (96.9 F) 09/14/2023 2:41 PM [employer] SH[employer] HELPER Respiratory Rate 16 10/06/2022 9:23 AM [employer]OR SHOP HELPER Oxygen Saturation 100% 09/14/2023 2:41 PM [employer]OR SHOP HELPER Inhaled Oxygen Concentration - - Weight 51.3 kg (113 lb) 09/14/2023 2:41 PM [employer]OR SHOP HELPER Height 160 cm (5' 3 ) 09/14/2023 2:41 PM [employer]OR SH[employer] HELPER Body Mass Index 20.02 09/14/2023 2:41 PM [employer]OR SHOP HELPER Plan of Treatment Health Maintenance Due Date [...] Management General On track( 023 2: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 Blood BLOOD SPECIMEN / Unknown Lab Venipuncture / Unknown 04/07/2022 9:57 AM CDT 04/07/2022 10:[address] [facility] - 04/11/2022 1:04 PM CDT The Hepatitis C viral (HCV) RNA analysis utilized a serum sample, real-time reverse lime trimmer PCR, and is reported as Not Detected, [...] the isolation of HCV RNA with reverse lime trimmer of genomic HCV RNA followed by real-time PCR in the presence of an unrelated RNA internal control. The internal control ensures that RNA is isolated, and that no general significant inhibitors of the RT-PCR process are present. The analysis was performed using a U.S. FDA approved test methodology ([facility] Real Time HCV). Ruth Leger [facility] - CHEMISTRY NAKIA LEWIS Final Result [facility] [address] [place] [address], [facility] [phone] from Last 3 Months or Most Recently Relevant to Health Maintenance Insurance MEDICAID - OUT OF STATE MEDICARE [facility] Care Teams Production Machinist Relationship Specialty Start Date End Date Karyn Christensen MD [address] [place] [phone] PCP - General 04/14/21
[2025-03-19 20:00] VITALS: BP 133/91; PULSE 72; RESP 18; O2SAT 100
[2025-03-19 21:03] VITALS: BP 135/72; PULSE 66; RESP 18; O2SAT 100
== END 2025-03-19 21:12 | disposition home or self-care (01) ==
PROVIDERS: Physician Assistant; Emergency Provider Physician Assistant; PCP Physician Assistant
DX: K29.00 Acute gastritis without bleeding (principal); N39.0 Urinary tract infection, site not specified; Z87.891 Personal history of nicotine dependence; K80.20 Calculus of gallbladder without cholecystitis without obstruction
CPT/HCPCS: 36415; 74177; 80048; 80307; 81001; 83690; 85025; 87086; 99284; Q9967